=== PATIENT | female | born 1960 | race Caucasian/White ===

== ENCOUNTER 2023-02-20 15:31 | Emergency (ER) | payer BC ==
[~2023-02-20] VITALS: Ht 160 cm; Wt 90.7 kg
[2023-02-20 15:33] VITALS: BP 157/88
--- NOTE | 2023-02-20 15:43 | NUR ---
bib s/p trip and fall noted with lac to left side of scalp. dried blood noted. denies loc. no blood thinners. [id number]. resp even and nonlabored. denies n,v, dizziness.
--- NOTE | 2023-02-20 16:09 | NUR ---
WOUND TO SUPERIOR SCALP IRRIGATED WITH BETADINE X NS. SUTURE SET UP BEDSIDE ALONG WITH STAPLER
[2023-02-20 17:22] VITALS: BP 140/76
--- NOTE | 2023-02-20 17:22 | NUR ---
Patient discharged with v/s stable. Written and verbal after care instructions given and explained. Patient verbalized understanding. Ambulatory with steady gait. All questions addressed prior to discharge. Advised to follow up with PMD.
== END 2023-02-20 17:22 | disposition home or self-care (01) ==
LOC: MED 15:31
DX: S01.01XA Laceration without foreign body of scalp, initial encounter (principal); W18.30XA Fall on same level, unspecified, initial encounter; Y93.89 Activity, other specified; Y92.89 Other specified places as the place of occurrence of the external cause; Y99.8 Other external cause status
CPT/HCPCS: 12001; 99283